=== PATIENT | female | born 1960 | race Caucasian/White ===

== ENCOUNTER → 2018-09-29 08:41 | Outpatient (CLI) | payer OTHER, SELFPAY ==
[2018-09-29 09:12] LABS: Absolute Lymphocyte Count 1.74 X10^3/ul (0.83-4.51); Absolute Neutrophil Count 2.2 X10^3/uL (2.0-7.7); Basophil# 0.02 X10^3/uL; Basophil% 0.5 % (0-1); Eosinophil# 0.16 X10^3/uL; Eosinophils% 3.7 % (0-5); Hematocrit 43.7 % (37-47); Hemoglobin 14.3 g/dl (12.0-15.0); Lymphocyte # 1.74 X10^3/ul (4.0); Lymphocyte % 39.8 % (19-41); Mean Corp Hgb Conc 32.7 g/gl (32-36); Mean Corpuscular Hgb 30.8 pg (27.0-32.0); Mean Platelet Vol. 9.6 fl (6.2-12.0); Monocyte# 0.23 X10^3/uL; Monocyte% 5.3 % (0-10); Neutrophil # 2.22 X10^3/uL (2.7-7.7); Neutrophil % 50.7 % (47-70); Platelet Count 201 K/mm3 (150-450); RBC Distribution Width CV 12.6 % (11.6-14.6); RBC Distribution Width SD 42.8 fl (35.1-43.9); Red Blood Count 4.65 M/mm3 (4.2-5.4); White Blood Count 4.4 K/mm3 (4.4-11.0)
[2018-09-29 09:15] LABS: POSITIVE COUNT NO; POSITIVE DIFFERENTIAL NO; POSITIVE MORPHOLOGY NO
[2018-09-29 09:37] LABS: ALB/GLOB Ratio 1.3 RATIO (0.9-2.4); AST(SGOT) 27 U/L (15-37); Alanine Aminotransfer ALT/SGPT 41 U/L (13-56); Albumin, Serum 3.9 g/dL (3.2-5.0); Alkaline Phosphatase 53 U/L (45-117); Anion Gap 6 (5-15); BUN 20 mg/dL (7-18); Calcium,Total 9.1 mg/dL (8.5-10.1); Chloride 106 mmol/L (98-107); Cholesterol 222 mg/dL (200); EST Glomerular Filtration Rate 78 mL/min (>60); Est Glom Filt Rate - Afr Amer 95 mL/min (>60); Globulin 3.1 g/dL (2.2-4.2); Glucose 83 mg/dL (74-106); High Density Lipoprotein 50 mg/dL; Potassium 4.1 mmol/L (3.5-5.1); Sodium Level 141 mmol/L (136-145); Triglycerides 188 mg/dL; Very Low Density Lipoprotein 38 mg/dL (5-40)
== END ==
PROVIDERS: Family Provider Internal Medicine; PCP Internal Medicine; Referring Provider Internal Medicine; Visit Provider Internal Medicine
DX: Z00.00 Encounter for general adult medical examination without abnormal findings (principal); I10 Essential (primary) hypertension
CPT/HCPCS: 36415; 80053; 80061; 85025

== ENCOUNTER → 2019-03-31 09:56 | Outpatient (CLI) | payer OTHER, SELFPAY ==
[2018-11-01 08:07] VITALS: BMI 27.3
--- NOTE | 2019-03-31 10:00 | BI_ITS ---
MAMMOGRAPHY - BILATERAL SCREENING 3-D TOMOSYNTHESIS REASON FOR EXAM: Female, 58 years old. Bilateral Screening 3-D tomosynthesis PERTINENT HISTORY: Family history of paternal great aunt. TECHNIQUE: 2-D mammograms and 3-D Tomosynthesis of the breast (s) were performed. CAD was performed. COMPARISON: March 23, 2018. FINDINGS: The breast composition is composed of scattered fibroglandular density. Scattered benign calcifications are seen. No dense spiculated masses or suspicious microcalcifications are identified. No architectural distortion is identified. There is no skin thickening or retraction. There has been no significant change since the prior study. BI/SCREENING MAMM (CAD), BILAT IMPRESSION: No mammographic signs of malignancy. Routine yearly mammograms recommended. ASSESSMENT CATEGORY: BIRADS Category 1: Negative. A letter regarding these results will be sent to the patient by the facility within 30 days. FOLLOW UP RECOMMENDATION: Yearly follow up mammogram recommended. (A) Approximately 10% of breast cancers are not detected by mammography. A normal mammogram should not delay biopsy of a clinically suspicious abnormality. Electronically Signed: Jeyson Pink MD at 11:56 EDT , Service support ,
== END ==
PROVIDERS: Family Provider Internal Medicine; PCP Internal Medicine; Referring Provider Obstetrics & Gynecology; Visit Provider Obstetrics & Gynecology
DX: Z12.31 Encounter for screening mammogram for malignant neoplasm of breast (principal)
CPT/HCPCS: 77063; 77067

== ENCOUNTER 2019-08-20 15:14 | Emergency (ER) | payer OTHER, SELFPAY ==
[2019-04-04 08:52] VITALS: BMI 27.3
[2019-08-20 15:14] VITALS: BP 150/111; PULSE 96; RESP 18; O2SAT 100
[2019-08-20 15:15] VITALS: BP 150/111; PULSE 96; RESP 18; TEMP 35.7; O2SAT 100; BMI 27.3
--- NOTE | 2019-08-20 15:26 | US_ITS ---
STUDY: ABDOMINAL ULTRASOUND - RIGHT UPPER QUADRANT REASON FOR VISIT: Female, 59 years old abdominal pain. Known to have a right renal mass. TECHNIQUE: Ultrasound evaluation of the right upper quadrant was performed with real-time and static padilla-scale imaging. TECHNICAL QUALITY: Adequate. COMPARISON: None. FINDINGS: Liver: The liver measures 16.8 cm. There is a heterogeneous echogenicity of the liver. The bile ducts are within normal limits. There is hepatic color flow. The direction of portal flow is hepatopetal. Multiple cysts of the left liver lobe measuring 2 cm and a 1.7 x 1.5 x 1.4 cm. Somewhat ill-defined solid mixed density lesion of the posterior right liver measuring 3.7 x 4.3 x 4.1 cm. This lesion has a slightly hyperechoic rim with an isoechoic center. Gallbladder: Normal distended gallbladder. The gallbladder wall measures 3 mm. There is a negative sonographic Simental's sign. There is no pericholecystic fluid. There are no gallstones. Common Bile Duct (C.B.D.): The common bile duct measures 3 mm. Pancreas: Normal size of the head, body and tail of the pancreas. There is normal echogenicity of the pancreas. There is no demonstrated pancreatic mass or cyst. Right Kidney: Normal size of the right kidney. The right kidney measures 15.7 x 6.9 x 8.8 cm. Normal renal cortex. The right cortex measures 2 cm. Hyperechoic mass density of the right kidney measuring 10.7 x 9.0 x 9.0 cm in the central to lower lobe area. 0.9 x 1.7 x 1.5 cm upper pole cyst or dilated calyx. There is no right hydronephrosis. US/Gallbladder IMPRESSION: Normal gallbladder. Nondistended common bile duct and a normal pancreas. Hyperechoic solid 10.7 x 9.0 x 9.0 cm mass of the right kidney. Heterogeneous liver with cysts of the left lobe and a solid target-like lesion of the right liver suspicious for metastatic disease. Electronically Signed: Felicita Chester MD at 17:34 EDT , Service support ,
--- NOTE | 2019-08-20 15:27 | ED.DCSUM_ITS ---
History of Present Illness Chief Complaint: Abd Pain Informant: Patient Onset: Weeks Timing: Waxes and wanes Current Severity: Moderate Maximum Severity: Moderate Narrative: Patient presents with epigastric abdominal pain. 6 days ago she had severe upper abdominal pain after eating dinner. She states she was up pacing in her home most of the night. She had nausea. She is able to take a leftover Percocet was finally able to get some sleep. Throughout the rest of the week she did not feel well, but did not have any severe attacks of pain. She ate brunch today which consisted of scrambled eggs, hash [place], and parekh. Shortly after that she got severe recurrent pain in the upper abdomen. She has felt nauseated but no vomiting. She has not noted a fever. She does have a history of reflux disease and takes omeprazole. She states she had a similar attack several years ago and her primary care physician increased her omeprazole and gave her Carafate. Her gallbladder was not evaluated at that time. Past Medical History - Allergies and Home Meds Allergies/Adverse Reactions: Allergies clarithromycin [From Biaxin] Allergy (Severe, Verified 11/01/18 08:08) Hives erythromycin base Allergy (Severe, Verified 11/01/18 08:08) other heart racing meperidine [From Demerol] Allergy (Severe, Verified 11/01/18 08:08) [facility] Primary Care Physician: Krystal Jules MD [Primary Care Provider] - Prior records reviewed: Yes Past Medical History: - - Reviewed Smoking Status: Never smoker Review of Systems General: Denies: Chills, Fever Eyes: Denies: Visual changes - bilaterally ENT: Denies: Bilateral ear pain Cardiovascular: Denies: Chest pain Respiratory: Denies: Dyspnea, Cough Gastrointestinal: Reports: Abdominal pain, Nausea. Denies: Vomiting, Diarrhea Genitourinary: Denies: Dysuria Musculoskeletal: Denies: Back pain Skin: Denies: Rash Neurological: Denies: Headache Endocrine: Denies: Polyuria, Polydipsia Hematologic: Denies: Easy bruising Allergy: Denies: Uticaria Physical Exam Vital Signs/Narrative: Vital Signs Temp Pulse Resp BP Pulse Ox 08/20/19 15:15 96.2 F L 96 18 150/111 H 100 08/20/19 15:14 96 18 150/111 H 100 Inital Vital Signs reviewed: Yes General: Well nourished, Well developed Head: Normocephalic ENT: Moist mucous membranes Neck: Supple Cardiovascular: Regular rate, Regular rhythm Respiratory: No distress, CTA bilaterally Abdomen: Soft, Tender - Tenderness across the upper abdomen, worse in the epigastric region. No guarding or rebound. Hypoactive bowel sounds are present., Hypoactive bowel sounds. Negative for: Guarding, Rebound tenderness Extremities: Nontender, No edema Skin: Normal color, No rash Neurological: Alert, Oriented x3 Psychological: Normal affect Diagnostic/Tx/Re-eval Impressions Gallbladder Ultrasound 08/20/19 15:26 IMPRESSION: Normal gallbladder. Nondistended common bile duct and a normal pancreas. Hyperechoic solid 10.7 x 9.0 x 9.0 cm mass of the right kidney. Heterogeneous liver with cysts of the left lobe and a solid target-like lesion of the right liver suspicious for metastatic disease. Electronically Signed: Felicita Chester MD at 17:34 EDT , Service support , 08/20/19 15:26 US Gallbladder [Gallbladder] [US] Stat Laboratory Results 08/20/19 08/20/19 15:32 15:32 WBC 7.3 RBC 4.87 Hgb 14.9 Hct 44.2 MCV 90.8 MCH 30.6 MCHC 33.7 RDW Std Deviation 39.8 RDW Coeff of Vipin 12.0 Plt Count 233 MPV 9.5 Immature Gran % (Auto) 0.100 Neut % (Auto) 52.3 Lymph % (Auto) 28.0 [place] % (Auto) 6.8 Eos % (Auto) 12.4 H Baso % (Auto) 0.4 Absolute Neuts (auto) 3.8 Absolute Lymphs (auto) 2.05 Nucleated RBC % 0 Sodium 143 Potassium 3.8 Chloride 108 H Carbon Dioxide 24.0 Anion Gap 11 BUN 19 H Creatinine 0.90 Estim Creat Clear Calc 58.12 Est GFR (MDRD) Af Amer 82 Est GFR (MDRD) Non-Af 68 BUN/Creatinine Ratio 21.1 H Glucose 103 Calcium 9.4 Total Bilirubin 0.40 Direct Bilirubin 0.11 AST 16 ALT 27 Alkaline Phosphatase 66 Total Protein 7.1 Albumin 4.1 Globulin 3.0 Lipase 169 - Medical Decision Making Patient was given morphine and Zofran for pain and nausea. Symptoms are improved on repeat evaluation. Test results are discussed with her. I discussed with her specifically the mass noted on her right kidney and in her liver. She states these have been present for several years and she has followed up in the past with a specialist at [facility]. She has been advised that they are not cancerous. She has an appointment with her PCP on August 31. I recommended she have her primary doctor compare the reports from today's scan to her most recent records from [facility] to ensure they have not changed in size. She voices understanding and agreement. ED Disposition - Plan for ED Patient: Disposition: Home or Assisted Living Diagnosis: Epigastric pain Instructions: EPIGASTRIC PAIN (Uncertain cause) Referrals: Krystal Jules MD [Primary Care Provider] - Keep Evaristo appointment
[2019-08-20] MEDS: Ondansetron 4 MG/2 ML Vial IV (15:37)
[2019-08-20] MEDS: Morphine 4 MG/ML Syringe IV (15:37)
[2019-08-20] MEDS: 0.9% Normal Saline 1,000 ML 150 ML IV (15:40)
[2019-08-20 15:47] LABS: Absolute Lymphocyte Count 2.05 X10^3/uL (0.83-4.51); Absolute Neutrophil Count 3.8 X10^3/uL (2.0-7.7); Basophil# 0.03 X10^3/uL; Basophil% 0.4 % (0-1); Eosinophil# 0.91 X10^3/uL; Eosinophils% 12.4 % (0-5); Hematocrit 44.2 % (37-47); Hemoglobin 14.9 g/dL (12.0-15.0); Lymphocyte # 2.05 X10^3/ul (4.0); Mean Corp Hgb Conc 33.7 g/dL (32-36); Mean Corpuscular Hgb 30.6 pg (27.0-32.0); Mean Corpuscular Volume 90.8 fL (81-99); Mean Platelet Vol. 9.5 fl (6.2-12.0); Monocyte% 6.8 % (0-10); NRBC Flagged by Analyzer 0 % (0-5); Neutrophil # 3.81 X10^3/uL (2.7-7.7); Neutrophil % 52.3 % (47-70); Platelet Count 233 K/mm3 (150-450); RBC Distribution Width SD 39.8 fl (35.1-43.9); Red Blood Count 4.87 M/mm3 (4.2-5.4); White Blood Count 7.3 K/mm3 (4.4-11.0)
[2019-08-20 16:01] LABS: AST(SGOT) 16 U/L (15-37); Alanine Aminotransfer ALT/SGPT 27 U/L (13-56); Albumin, Serum 4.1 g/dL (3.2-5.0); Alkaline Phosphatase 66 U/L (45-117); Anion Gap 11 (5-15); BUN 19 mg/dL (7-18); BUN/Creat Ratio 21.1 RATIO (10-20); Bilirubin, Direct 0.11 mg/dL (0.00-0.30); Calcium,Total 9.4 mg/dL (8.5-10.1); Chloride 108 mmol/L (98-107); EST Glomerular Filtration Rate 68 mL/min (>60); Est Glom Filt Rate - Afr Amer 82 mL/min (>60); Estimated Creatinine Clearance 58.12 ml/min; Glucose 103 mg/dL (74-106); Lipase 169 U/L (73-393); Potassium 3.8 mmol/L (3.5-5.1); Protein, Total 7.1 g/dL (6.4-8.2); Sodium Level 143 mmol/L (136-145)
[2019-08-20 17:04] VITALS: BP 146/61; PULSE 87; RESP 18; O2SAT 97
[2019-08-20 18:24] VITALS: BP 162/80; PULSE 73; RESP 16; O2SAT 97
== END 2019-08-20 18:25 | disposition home or self-care (01) ==
PROVIDERS: Emergency Provider Emergency Medicine; Family Provider Internal Medicine; PCP Internal Medicine
DX: R10.13 Epigastric pain (principal); K21.9 Gastro-esophageal reflux disease without esophagitis; R11.0 Nausea; Z79.899 Other long term (current) drug therapy; Z88.1 Allergy status to other antibiotic agents; Z88.5 Allergy status to narcotic agent
CPT/HCPCS: 76705; 80048; 80076; 83690; 85025; 96361; 96374; 96375; 99283; J7030; A4216; J2405

== ENCOUNTER → 2019-10-13 09:23 | Outpatient (CLI) | payer OTHER, SELFPAY ==
[2019-08-31 16:54] VITALS: BMI 27.3
--- NOTE | 2019-10-13 09:32 | MRI_ITS ---
HISTORY: Attention right kidney. No right kidney mass for many years. Concern for growth and changes. Comparison study is an ultrasound from August 20, 2019. No previous cross-sectional imaging of either CT or MRI is available of the right kidney. Comparison with the patient's folder demonstrates only previous abdominal ultrasound as discussed, breast imaging, and a pelvic ultrasound. 20 series. 1240 images. 14 mL of Dotarem intravenous gadolinium. Findings: Several lesions are present within the liver. These lesions are hyperintense on T2 weighted series, hyperintense on T2 fat saturated series, hypointense on T1 pre-gadolinium series. They are not as intense as the fluid within the gallbladder or the stomach lumen on T2 weighted series. On the coronal T1 post gadolinium limited images. Only the largest liver lesion, the lesion within the left hepatic lobe enhances. It is a slightly heterogeneous enhancement with hypo-intense areas at its periphery. On this MRI of the kidneys, it is not completely imaged on any of the axial series. I measure it at at least 3.3 x 5.2 x 3.7 cm. The lesion within the right kidney remains. This lesion is hyperintense on T2, hyperintense on T1, hypointense on T2 fat saturation, and hypointense on T1 post gadolinium with fat saturation. On that T1 post gadolinium with fat saturation, there are enhancing vessels permeating throughout the mass. I measure the mass on today's study at 8.7 x 8.5 x 10 cm. I do not perceive any hemorrhage within the mass. The mass does abut and displace it and has caused atrophy to the remaining right renal parenchyma. The remaining right renal parenchyma does enhance. There is evidence to suggest that the right kidney does generate contrast excretion through normal renal function. There is a superior pole calyx which is abnormally dilated likely due to at least partial obstruction of the calyx by the mass. The spleen, pancreas, and adrenal glands are normal. The stomach is mostly decompressed. The gallbladder remains. No biliary ductal dilatation is perceived. Within the lower thoracic and lumbar spine bony alignment is normal. Vertebral body height is normal. Bowel gas pattern is normal. 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 No evidence of hemorrhage. Several lesions within the liver. Most of these lesions demonstrate imaging characteristics similar to that of cysts. The largest lesion, anteriorly within the left hepatic lobe measures 3.3 x 5.2 x 3.7 cm. This could be a hemangioma, however, as this study was performed for the kidney, there is not complete imaging on any axial series through the liver lesion. The other lesions within the liver are cysts and were proven to be cysts on the ultrasound. at 0159 Reported and signed by: Boy Barros MD Electronically Signed: Boy Barros MD at 1:58 EST Tel , Service support ,
== END ==
PROVIDERS: Family Provider Internal Medicine; PCP Internal Medicine; Referring Provider Internal Medicine; Visit Provider Internal Medicine
DX: N28.89 Other specified disorders of kidney and ureter (principal)
CPT/HCPCS: 74183; A9575

== ENCOUNTER → 2019-10-25 08:59 | Outpatient (CLI) | payer OTHER, SELFPAY ==
[2019-08-31 16:54] VITALS: BMI 27.3
[2019-10-25 09:57] LABS: Cholesterol 229 mg/dL (200); High Density Lipoprotein 59 mg/dL; Triglycerides 123 mg/dL; Very Low Density Lipoprotein 25 mg/dL (5-40)
== END ==
PROVIDERS: Family Provider Internal Medicine; PCP Internal Medicine; Referring Provider Nurse Practitioner Family; Visit Provider Nurse Practitioner Family
DX: E78.5 Hyperlipidemia, unspecified (principal)
CPT/HCPCS: 36415; 80061

== ENCOUNTER → 2020-04-02 10:37 | Outpatient (CLI) | payer OTHER, SELFPAY ==
[2019-10-25 09:50] VITALS: BMI 27.3
--- NOTE | 2020-04-02 10:40 | BI_ITS ---
MAMMOGRAPHY - BILATERAL SCREENING REASON FOR EXAM: Female, 59 years old. Routine annual screening examination. PERTINENT HISTORY: Great aunt with breast cancer. TECHNIQUE: Digital bilateral breast williams (3D mammographic acquisition) in the CC and MLO projections. 2-D mediolateral oblique (MLO) and craniocaudad (CC) views of both breasts were obtained. CAD: Full Field Digital Mammography with Computer Added Detection was performed. COMPARISON: Comparison is made with prior examination dated March 31, 2019. FINDINGS: Breast Composition: There are scattered areas of fibroglandular density. There are no dominant masses or suspicious calcifications. Stable benign-appearing bilateral axillary lymph nodes. No other significant abnormalities are identified. There has been no significant change since the prior study. BI/SCREEN MAMM (CAD) W/WILLIAMS BILAT IMPRESSION: Stable bilateral screening mammogram. Yearly follow-up mammogram recommended. (A) ASSESSMENT CATEGORY: BIRADS Category 2: Benign. A letter regarding these results will be sent to the patient by the facility within 30 days. Approximately 10% of breast cancers are not detected by mammography. A normal mammogram should not delay biopsy of a clinically suspicious abnormality. [id number] Electronically Signed: Pro Mosquera, at 12:14 EDT , Service support ,
== END ==
PROVIDERS: PCP Internal Medicine; Referring Provider Obstetrics & Gynecology; Visit Provider Obstetrics & Gynecology
DX: Z12.31 Encounter for screening mammogram for malignant neoplasm of breast (principal)
CPT/HCPCS: 77063; 77067

== ENCOUNTER 2020-05-10 05:55 | Day surgery (SDC) | payer OTHER, SELFPAY ==
[2019-10-25 09:50] VITALS: BMI 27.3
--- NOTE | 2020-05-10 | COLBX_PTH ---
PATIENT: JUANPABLO MENARD LOC: EN U#:[id number] AGE/SX: 60/F ROOM: RE05/10/[address]: Dr. Adelso Eubanks MD : 1960 BED: DIS: 05/10/2020 SPEC #: [id number] RECD: 05/10/20 12:36 STATUS: DOROTHY CABELLO #: [id number] GUSTAVO: 05/10/20 00:[address]: Adelso Eubanks DEPT: SURGICAL PATHOLOGY RECD BY: Zafar Chandler ENTERED: 05/13/20 09:42 SP TYPE: COLON BX OT DR: Dr. Krystal Jules MD Tissues: A - Cecum, NOS B - Ascending colon Procedures: Surgery Specimen Level IV HEADER OPERATION: Colonoscopy - open access (MAC) PRE-OP DIAGNOSIS: Screening TISSUE SUBMITTED: A - Cecum polyp (cold snare), B - Proximal ascending polyp biopsy MICROSCOPIC DIAGNOSIS A. Cecum polyp, biopsy: Fragments of tubular adenoma. B. Proximal ascending colon polyp, biopsy: Fragments of tubular adenoma. SJ:esther 05/14/20 MICROSCOPIC DESCRIPTION Slides are reviewed. GROSS DESCRIPTION A - Received in fixative is one container labeled with the patient's name and designated cecal polyp biopsy. The specimen consists of multiple irregular fragments of light masters soft tissue that in aggregate measure 0.8 x 0.5 x 0.1 cm. The specimen is totally submitted in one cassette. B - Received in fixative is one container labeled with the patient's name and designated proximal ascending polyp. The specimen consists of two irregular fragments of light masters soft tissue that in aggregate measure 1 x 0.6 x 0.1 cm. The specimen is totally submitted in one cassette. / AM:esther 05/13/20 TC:1 CPT: 07551 x2
[2020-05-10 06:17] VITALS: BP 162/68; PULSE 63; RESP 16; TEMP 36.5; O2SAT 99; BMI 28.1
--- NOTE | 2020-05-10 06:20 | PCM.HP.STD ---
Problem List (1) Screening for intestinal cancer Status: Acute History of Present Illness Date of Admission: 05/10/20 The patient is a 60 year old F who presents for screening colonoscopy today. Her previous colonoscopy was 10 years prior. She denies bright red blood per rectum or melena. No abdominal pain. She otherwise states that she is in good health. Past Medical History Past Medical History (Chronic Problems): Chronic Problems (Last Reviewed 10/25/19 @ 09:41 by Janet Aguila) Renal mass (Chronic) Hypertension (Chronic) Hyperlipidemia (Chronic) Seasonal allergies (Chronic) Hiatal hernia (Chronic) GERD (gastroesophageal reflux disease) (Chronic) Medical History: Medical History (Last Reviewed 10/25/19 @ 09:41 by Janet Aguila) Seasonal allergies (Chronic) J30.2 Hiatal hernia (Chronic) K44.9 GERD (gastroesophageal reflux disease) (Chronic) K21.9 Allergies clarithromycin [From Biaxin] Allergy (Severe, Verified 05/08/20 10:02) Hives erythromycin base Allergy (Severe, Verified 05/08/20 10:02) other heart racing meperidine [From Demerol] Allergy (Severe, Verified 05/08/20 10:02) hives Home Medications: Ambulatory Orders Medication Instructions Recorded omeprazole 20 mg capsule,delayed See Rx Instructions .ROUTE 01/03/20 release .COMPLEX #90 cap estradiol 0.025 mg/24 hr 1 patch TRANSDERMAL 2XW #24 ea 01/08/20 semiweekly transdermal patch Surgical History: Surgical History (Last Reviewed 10/25/19 @ 09:41 by Janet Aguila) History of D&C Z98.890 History of LAVH Z90.710 bladder sling History of carpal tunnel release Z98.890 2017, also removal of a non benign tumor. History of section Z98.891 x3, 1980, 1982, 1986 History of ear surgery Z98.890 1973 History of eye surgery Z98.890 shorten the muscle 74, 84 History of hemorrhoidectomy Z98.890 2011 History of tonsillectomy Z90.89 1965 History of vascular surgery Z98.890 Rt leg 2019 Smoking Status: Never smoker Tobacco Use: Non-smoker Review of Systems Constitutional: Denies: Weight Change HEENT: Denies: Difficulty Swallowing Cardiovascular: Denies: Chest Pain Respiratory: Denies: Cough Gastrointestinal: Denies: Abdominal Pain Endocrine: Denies: Change in Body Habitus VTE Information - Inpt Only VTE Present on Admission: No Patient Problems: Active and Suspected Problems (Last Reviewed 10/25/19 @ 09:41 by Janet Aguila) Screening for intestinal cancer (Acute) - Physical Exam Vitals/I&O's: Body Mass Index (BMI) 27.3 General: Alert, Oriented x3, Cooperative, No apparent distress Oral: Moist Mucosa Lungs: Clear to auscultation, Normal air movement Cardiovascular: Regular rate, Regular Rhythm Abdomen: Bowel Sounds Present, Soft, Non Tender Extremities: No Calf Tenderness Neurological: - - Normal cognition Psych/Mental Status: Normal Affect Laboratory Results 05/09/20 09:50: COVID-19 (ROJELIO) Not Detected Assessment/Plan All Active Problems (Last Reviewed 10/25/19 @ 09:41 by Janet Aguila) Screening for intestinal cancer (Acute) Climacteric (Acute) The patient presents via open access today. Plan to proceed with a screening colonoscopy with possible biopsy or polypectomy is indicated. She is aware of the technique, benefit, risks, alternatives. She has had an opportunity to ask and have questions answered. We will proceed as noted. Adelso Eubanks M.D., F.A.C.S. Procedure Criteria Procedure Type: Elective COVID Risk Discussion: The surgeon/proceduralist and patient have discussed in detail the risk of exposure to and/or potential harm posed by the COVID-19 virus with having a surgery/procedure at this time versus the risk of delaying the surgery/procedure. It is not possible to know either the risk of delaying the surgery or procedure or chance of getting an infection with perfect accuracy, but a joint decision was made between the patient and the surgeon/proceduralist to proceed at this time with the scheduled surgery/procedure as indicated on the consent form.
[2020-05-10] MEDS: Lactated Ringers 1,000 ML 100 ML IV (06:28)
[2020-05-10 07:34] VITALS: BP 116/49; BP 162/68; PULSE 71; RESP 14; TEMP 36.3; O2SAT 100
--- NOTE | 2020-05-10 07:35 | OP.COLON_ITS ---
Patient Name: Felicity Shah Procedure Date: 05/10/2020 7:01 AM Date of : 1960 Age: 60 Procedure: Colonoscopy Indications: Screening for colorectal malignant neoplasm Providers: Adelso Eubanks MD Medicines: See the Anesthesia note for documentation of the administered medications Patient Profile: Last Colonoscopy: 10 years ago. Complications: No immediate complications. Procedure: Pre-Anesthesia Assessment: - Prior to the procedure, a History and Physical was performed, and patient medications and allergies were reviewed. The patient's tolerance of previous anesthesia was also reviewed. The risks and benefits of the procedure and the sedation options and risks were discussed with the patient. All questions were answered, and informed consent was obtained. Prior Anticoagulants: The patient has taken no previous anticoagulant or antiplatelet agents. ASA Grade Assessment: II - A patient with mild systemic disease. After reviewing the risks and benefits, the patient was deemed in satisfactory condition to undergo the procedure. After I obtained informed consent, the scope was passed under direct vision. Throughout the procedure, the patient's blood pressure, pulse, and oxygen saturations were monitored continuously. The pediatric colonoscope was introduced through the anus and advanced to the cecum, identified by appendiceal orifice and ileocecal valve. The colonoscopy was unusually difficult due to a tortuous colon. Successful completion of the procedure was aided by applying abdominal pressure. The patient tolerated the procedure well. The quality of the bowel preparation was good. The ileocecal valve was photographed. Scope In: 7:07:29 AM Scope Withdrawal Time 0 hours 10 minutes 47 seconds Scope Out: 7:29:29 AM Total Procedure Duration Time 0 hours 22 minutes 0 seconds Findings: The digital rectal exam findings include non-thrombosed external hemorrhoids, non-thrombosed internal hemorrhoids and internal hemorrhoids that prolapse with straining, but spontaneously regress to the resting position (Grade II). Pertinent negatives include lax anal tone. A 10 mm polyp was found in the cecum. The polyp was sessile. The polyp was removed with a cold snare. Resection and retrieval were complete. A 5 mm polyp was found in the proximal ascending colon. The polyp was sessile. The polyp was removed with a cold biopsy forceps. Resection and retrieval were complete. The colon (entire examined portion) was significantly tortuous. Impression: - Non-thrombosed external hemorrhoids, non-thrombosed internal hemorrhoids and internal hemorrhoids that prolapse with straining, but spontaneously regress to the resting position (Grade II) found on digital rectal exam. - One 10 mm polyp in the cecum, removed with a cold snare. Resected and retrieved. - One 5 mm polyp in the proximal ascending colon, removed with a cold biopsy forceps. Resected and retrieved. - Tortuous colon. Recommendation: - Discharge patient to home. - Resume previous diet. - Continue present medications. - Repeat colonoscopy in 5 years for surveillance based on pathology results. - Telephone my office for pathology results in 1 week. Procedure Code(s): --- Professional --- 82983, Colonoscopy, flexible; with removal of tumor(s), polyp(s), or other lesion(s) by snare technique 39082, 59, Colonoscopy, flexible; with biopsy, single or multiple Diagnosis Code(s): --- Professional --- Z12.11, Encounter for screening for malignant neoplasm of colon K64.1, Second degree hemorrhoids K64.4, Residual hemorrhoidal skin tags D12.0, Benign neoplasm of cecum D12.2, Benign neoplasm of ascending colon Q43.8, Other specified congenital malformations of intestine CPT copyright 2017 [employer]. All rights reserved. The codes documented in this report are preliminary and upon sports centre manager review may be revised to meet current compliance requirements. Adelso Eubanks MD 05/10/2020 7:35:09 AM This report has been signed electronically. Number of Addenda: 0 Note Initiated On: 05/10/2020 7:01 AM
--- NOTE | 2020-05-10 07:35 | OP.CCLET_ITS ---
05/10/2020 Krystal Jules MD [address] [place] [address] [place] [address] Re : Colonoscopy procedure for Felicity Shah Dear Dr. Jules This procedure was performed on Sunday, May 10, 2020. My impressions and recommendations are as follows: Impressions : - Non-thrombosed external hemorrhoids, non-thrombosed internal hemorrhoids and internal hemorrhoids that prolapse with straining, but spontaneously regress to the resting position (Grade II) found on digital rectal exam. - One 10 mm polyp in the cecum, removed with a cold snare. Resected and retrieved. - One 5 mm polyp in the proximal ascending colon, removed with a cold biopsy forceps. Resected and retrieved. - Tortuous colon. Recommendations : - Discharge patient to home. - Resume previous diet. - Continue present medications. - Repeat colonoscopy in 5 years for surveillance based on pathology results. - Telephone my office for pathology results in 1 week. My findings are described in the full procedure note, which is enclosed. If I can be of further assistance, please feel free to contact me at Doctor phone number(s): Work: . Sincerely, Adelso Eubanks MD 05/10/2020 7:35:09 AM This report has been signed electronically.
[2020-05-10 07:40] VITALS: BP 116/59; BP 162/68; PULSE 71; RESP 16; O2SAT 98
[2020-05-10 07:45] VITALS: BP 116/62; BP 162/68; PULSE 69; RESP 16; O2SAT 100
[2020-05-10 07:50] VITALS: BP 160/73; BP 162/68; PULSE 73; RESP 16; TEMP 36.3; O2SAT 100
[2020-05-10 08:06] VITALS: BP 162/68
== END 2020-05-10 08:34 | disposition home or self-care (01) ==
LOC: EN 05:56 → AC 05:56
PROVIDERS: Anesthesiology; PCP Internal Medicine; Referring Provider Internal Medicine; Visit Provider Surgery
PROC: 0DJD8ZZ Inspection of Lower Intestinal Tract, Via Natural or Artificial Opening Endoscopic (ICD-10-PCS; CPT 45378; principal; 2020-05-10 06:55)
DX: Z12.11 Encounter for screening for malignant neoplasm of colon (principal); D12.0 Benign neoplasm of cecum; D12.2 Benign neoplasm of ascending colon; Z11.59 Encounter for screening for other viral diseases; Q43.8 Other specified congenital malformations of intestine; K64.4 Residual hemorrhoidal skin tags; K64.1 Second degree hemorrhoids; K21.9 Gastro-esophageal reflux disease without esophagitis; I10 Essential (primary) hypertension; E78.5 Hyperlipidemia, unspecified; K44.9 Diaphragmatic hernia without obstruction or gangrene; Z79.899 Other long term (current) drug therapy; Z88.5 Allergy status to narcotic agent; Z88.1 Allergy status to other antibiotic agents
CPT/HCPCS: 45380; 45385; 87635; 88305; G2023; J7120; J2405; U0003

== ENCOUNTER → 2020-08-23 10:30 | Outpatient (CLI) | payer OTHER, SELFPAY | PROVIDERS: PCP Internal Medicine; Referring Provider Obstetrics & Gynecology; Visit Provider Obstetrics & Gynecology | DX: R30.0 Dysuria (principal) | CPT/HCPCS: 87086 ==

== ENCOUNTER → 2020-09-06 10:35 | Outpatient (CLI) | payer OTHER, SELFPAY ==
[2020-09-06 09:58] VITALS: BMI 28.1
[2020-09-06 12:49] LABS: Absolute Lymphocyte Count 1.35 X10^3/uL (0.83-4.51); Absolute Neutrophil Count 3.2 X10^3/uL (2.0-7.7); Basophil# 0.01 X10^3/uL; Basophil% 0.2 % (0-1); Eosinophil# 0.12 X10^3/uL; Eosinophils% 2.4 % (0-5); Hematocrit 44.1 % (37-47); Hemoglobin 14.3 g/dL (12.0-15.0); Lymphocyte # 1.35 X10^3/ul (4.0); Lymphocyte % 26.7 % (19-41); Mean Corp Hgb Conc 32.4 g/dL (32-36); Mean Corpuscular Hgb 30.4 pg (27.0-32.0); Mean Corpuscular Volume 93.8 fL (81-99); Mean Platelet Vol. 9.6 fl (6.2-12.0); Monocyte# 0.38 X10^3/uL; Monocyte% 7.5 % (0-10); NRBC Flagged by Analyzer 0 % (0-5); Neutrophil # 3.18 X10^3/uL (2.7-7.7); Platelet Count 230 K/mm3 (150-450); RBC Distribution Width CV 12.7 % (11.6-14.6); RBC Distribution Width SD 43.6 fl (35.1-43.9); White Blood Count 5.1 K/mm3 (4.4-11.0)
[2020-09-06 13:25] LABS: ALB/GLOB Ratio 1.1 RATIO (0.9-2.4); AST(SGOT) 30 U/L (15-37); Alanine Aminotransfer ALT/SGPT 47 U/L (13-56); Albumin, Serum 3.9 g/dL (3.2-5.0); Alkaline Phosphatase 61 U/L (45-117); Anion Gap 5 (5-15); BUN 19 mg/dL (7-18); BUN/Creat Ratio 24.1 RATIO (10-20); Calcium,Total 9.1 mg/dL (8.5-10.1); Chloride 105 mmol/L (98-107); Cholesterol 218 mg/dL (200); Creatinine, Serum 0.79 mg/dL (0.55-1.02); EST Glomerular Filtration Rate 79 mL/min (>60); Est Glom Filt Rate - Afr Amer 96 mL/min (>60); Globulin 3.5 g/dL (2.2-4.2); Glucose 89 mg/dL (74-106); High Density Lipoprotein 51 mg/dL; Potassium 4.3 mmol/L (3.5-5.1); Protein, Total 7.4 g/dL (6.4-8.2); Sodium Level 139 mmol/L (136-145); Triglycerides 172 mg/dL; Very Low Density Lipoprotein 34 mg/dL (5-40)
== END ==
PROVIDERS: PCP Internal Medicine; Referring Provider Internal Medicine; Visit Provider Internal Medicine
DX: I10 Essential (primary) hypertension (principal); E78.5 Hyperlipidemia, unspecified
CPT/HCPCS: 36415; 80053; 80061; 85025

== ENCOUNTER → 2020-10-22 06:39 | Outpatient (CLI) | payer OTHER, SELFPAY ==
[2020-09-12 11:09] VITALS: BMI 27.8
[2020-10-21 10:55] VITALS: BMI 28.1
--- NOTE | 2020-10-22 06:40 | MRI_ITS ---
STUDY: MRI ABDOMEN WITH AND WITHOUT CONTRAST REASON FOR EXAM: Female, 60 years old. f/u right renal mass, no new symptoms TECHNIQUE: Standardized fat and water weighted pulse sequences were obtained in all 3 orthogonal planes post contrast administration. IV Dotarem 15ml was administered for the contrast portion of the examination. COMPARISON: None. FINDINGS: Stable T2 cystic structures within the left lobe of the liver. Otherwise, the liver is unremarkable. Normal gallbladder and extrahepatic biliary system. Normal spleen. Normal pancreas. Normal bilateral adrenal glands. Stable lobulated fat-containing mass in the right kidney measuring 8.3 x 8.8 x 10 cm. Compatible with a renal AML. No evidence of intracerebral hemorrhage. Otherwise, remainder of the right renal parenchyma is within normal limits. Normal left kidney. Remaining visualized upper abdominal organs are within normal limits. 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 No evidence of internal hemorrhage. Electronically Signed: Riccardo Barahona DO at 7:28 EST Tel , Service support ,
[2020-10-22 08:25] LABS: CREATININE FINGERSTICK 0.7 mg/dL (0.55-1.02); EGFR FINGERSTICK > 60.0000 mL/min (>60)
== END ==
PROVIDERS: PCP Internal Medicine; Referring Provider Internal Medicine; Visit Provider Internal Medicine
DX: D30.01 Benign neoplasm of right kidney (principal); N28.89 Other specified disorders of kidney and ureter
CPT/HCPCS: 74183; A9575

== ENCOUNTER → 2021-03-27 16:45 | Outpatient (CLI) | payer OTHER, SELFPAY ==
[2020-10-21 10:55] VITALS: BMI 28.1
--- NOTE | 2021-03-27 16:47 | RAD_ITS ---
STUDY: X-RAY - LEFT HAND REASON FOR EXAM: Female, 60 years old. left hand pain TECHNIQUE: 3 view(s) of the hand. COMPARISON: None. FINDINGS: Normal radiocarpal articulation. Normal distal radioulnar joint. Normal visualized carpal bones. Normal carpal articulations Normal carpometacarpal articulation of the thumb. Normal second through fifth carpometacarpal joints. Normal metacarpi. Normal metacarpophalangeal joint of the thumb. Normal interphalangeal joint of the thumb. Normal proximal and distal phalanges of the thumb. Normal metacarpophalangeal joints of the second through fifth fingers. Normal proximal and distal interphalangeal joints of the second through fifth fingers. Normal phalanges of the second through fifth fingers. No visualized acute fracture. The soft tissue structures are unremarkable. RAD/Hand Min 3 Views IMPRESSION: Normal x-ray examination of the hand. Electronically Signed: Luis Fraire MD at 18:04 EDT , Service support ,
--- NOTE | 2021-03-27 16:47 | RAD_ITS ---
STUDY: X-RAY - LEFT WRIST REASON FOR EXAM: Female, 60 years old. left wrist pain TECHNIQUE: 4 view(s) of the wrist were obtained. COMPARISON: None. FINDINGS: Normal visualized distal radius and ulna. Normal radiocarpal articulation. Normal distal radioulnar articulation. Normal carpal bones. Normal carpal articulations. Normal carpometacarpal articulation of the thumb. Normal second through fifth carpometacarpal articulations. Normal visualized metacarpal bones. The soft tissue structures are unremarkable. There is no demonstrated acute fracture. RAD/Wrist min 3 Views IMPRESSION: Normal x-ray examination of the wrist. Electronically Signed: Luis Fraire MD at 18:02 EDT , Service support ,
== END ==
PROVIDERS: PCP Internal Medicine; Referring Provider Physician Assistant; Visit Provider Physician Assistant
DX: M25.532 Pain in left wrist (principal); M79.642 Pain in left hand
CPT/HCPCS: 73110; 73130

== ENCOUNTER → 2021-03-31 10:43 | Outpatient (CLI) | payer OTHER, SELFPAY ==
[2021-03-31 10:25] VITALS: BMI 28.1
[2021-03-31 12:19] LABS: Absolute Lymphocyte Count 1.52 X10^3/uL (0.83-4.51); Absolute Neutrophil Count 1.9 X10^3/uL (2.0-7.7); Basophil# 0.02 X10^3/uL; Basophil% 0.5 % (0-1); Eosinophil# 0.12 X10^3/uL; Eosinophils% 3.1 % (0-5); Hematocrit 44.3 % (37-47); Hemoglobin 14.4 g/dL (12.0-15.0); Lymphocyte # 1.52 X10^3/ul (0.83-4.51); Lymphocyte % 39.3 % (19-41); Mean Corp Hgb Conc 32.5 g/dL (32-36); Mean Corpuscular Volume 92.3 fL (81-99); Mean Platelet Vol. 9.8 fl (6.2-12.0); Monocyte# 0.31 X10^3/uL; NRBC Flagged by Analyzer 0 % (0-5); Neutrophil # 1.89 X10^3/uL (2.7-7.7); Neutrophil % 48.8 % (47-70); Platelet Count 233 K/mm3 (150-450); RBC Distribution Width CV 12.3 % (11.6-14.6); RBC Distribution Width SD 42.4 fl (35.1-43.9); White Blood Count 3.9 K/mm3 (4.4-11.0)
[2021-03-31 12:39] LABS: ALB/GLOB Ratio 1.2 RATIO (0.9-2.4); AST(SGOT) 19 U/L (15-37); Alanine Aminotransfer ALT/SGPT 34 U/L (13-56); Albumin, Serum 3.9 g/dL (3.2-5.0); Alkaline Phosphatase 61 U/L (45-117); Anion Gap 6 (5-15); BUN 22 mg/dL (7-18); BUN/Creat Ratio 29.2 RATIO (10-20); Calcium,Total 9.1 mg/dL (8.5-10.1); Chloride 103 mmol/L (98-107); Cholesterol 232 mg/dL (200); Creatinine, Serum 0.75 mg/dL (0.55-1.02); EST Glomerular Filtration Rate 83 mL/min (>60); Est Glom Filt Rate - Afr Amer 100 mL/min (>60); Globulin 3.2 g/dL (2.2-4.2); Glucose 88 mg/dL (74-106); High Density Lipoprotein 58 mg/dL; Potassium 4.1 mmol/L (3.5-5.1); Protein, Total 7.1 g/dL (6.4-8.2); Sodium Level 138 mmol/L (136-145); Triglycerides 125 mg/dL; Very Low Density Lipoprotein 25 mg/dL (5-40)
== END ==
PROVIDERS: PCP Internal Medicine; Visit Provider Internal Medicine
DX: I10 Essential (primary) hypertension (principal); E78.5 Hyperlipidemia, unspecified
CPT/HCPCS: 36415; 80053; 80061; 85025

== ENCOUNTER → 2021-04-02 07:52 | Outpatient (CLI) | payer OTHER, SELFPAY ==
[2020-10-21 10:55] VITALS: BMI 28.1
[2021-03-31 10:25] VITALS: BMI 28.1
--- NOTE | 2021-04-02 07:57 | BI_ITS ---
MAMMOGRAPHY - BILATERAL SCREENING REASON FOR EXAM: Female, 60 years old. Routine annual screening examination. PERTINENT HISTORY: Aunt with breast cancer. TECHNIQUE: Digital bilateral breast williams (3D mammographic acquisition) in the CC and MLO projections. 2-D mediolateral oblique (MLO) and craniocaudad (CC) views of both breasts were obtained. CAD: Full Field Digital Mammography with Computer Added Detection was performed. COMPARISON: Comparison is made with prior study dated 04/02/2020 and 03/31/2019. FINDINGS: Breast Composition: There are scattered areas of fibroglandular density. There are no dominant masses or suspicious calcifications. No other significant abnormalities are identified. There has been no significant change since the prior study. BI/SCRN MAMM (CAD)W/WILLIAMS BILAT IMPRESSION: Stable bilateral screening mammogram. Yearly follow-up mammogram recommended. (A) ASSESSMENT CATEGORY: BIRADS Category 1: Negative. A letter regarding these results will be sent to the patient by the facility within 30 days. Approximately 10% of breast cancers are not detected by mammography. A normal mammogram should not delay biopsy of a clinically suspicious abnormality. [id number] Electronically Signed: Pro Mosquera MD at 9:21 EDT , Service support ,
== END ==
PROVIDERS: PCP Internal Medicine; Referring Provider Nurse Practitioner Women's Health; Visit Provider Nurse Practitioner Women's Health
DX: Z12.31 Encounter for screening mammogram for malignant neoplasm of breast (principal); Z80.3 Family history of malignant neoplasm of breast
CPT/HCPCS: 77063; 77067

== ENCOUNTER 2023-09-18 20:17 | Emergency (ER) | payer OTHER, SELFPAY ==
[2023-09-18 20:18] VITALS: BP 151/84; PULSE 83; RESP 15; TEMP 36.2; O2SAT 100; BMI 27.9
--- NOTE | 2023-09-18 20:36 | EDS_ITS ---
HPI HPI - Female History of Present Illness Chief Complaint: Complaint Detail of Chief Complaint: Dysuria with urinary frequency. UTI history in the past. Informant: patient Associated Symptoms Associated Symptoms: Positive for Dysuria, Frequency and Urgency Narrative Narrative: 63 old female send frequent UTIs in the last several months after having renal surgery in [place]. Today started having urinary frequency and dysuria again. Mildly cloudy urine. Denies fever. Denies vomiting. Prior similar symptoms: Yes Recent Illness/Hospitalization: No PFSH PFSH Medical History De Quervain's tenosynovitis, left GERD (gastroesophageal reflux disease) Hiatal hernia Seasonal allergies Home Medications amlodipine 5 mg tablet 5 mg PO DAILY #90 tabs 02/04/21 [Rx Last Taken Unknown] prednisone 10 mg tablet 10 mg PO DAILY #30 tabs 03/27/21 [Rx Last Taken Unknown] celecoxib 200 mg capsule (Celebrex) 200 mg PO DAILY #30 caps 04/04/21 [Rx Last Taken Unknown] estradiol 0.025 mg/24 hr semiweekly transdermal patch 1 patch transdermal 2XW #24 ea 04/08/21 [Rx Last Taken Unknown] omeprazole 20 mg capsule,delayed release See Rx Instructions .Route .COMPLEX #90 caps 04/19/22 [Rx Last Taken Unknown] ciprofloxacin HCl 500 mg tablet (Cipro) 500 mg PO BID 10 days #20 tabs 09/18/23 [Rx Last Taken Unknown] Allergy/AdvReac Type Severity Reaction Status Date / Time clarithromycin [From Biaxin] Allergy Severe Hives Verified 09/18/23 20:22 erythromycin base Allergy Severe other Verified 09/18/23 20:22 meperidine [From Demerol] Allergy Severe hives Verified 09/18/23 20:22 azithromycin [From Zithromax] Allergy hives Verified 09/18/23 20:22 Family History Father Diabetes Hypertension Hyperlipemia CVA (cerebral vascular accident) Mother Hyperlipemia Hypertension Grandfather Cancer kidney Surgical History History of carpal tunnel release History of section History of D&C History of ear surgery History of eye surgery History of hemorrhoidectomy History of LAV History of tonsillectomy History of vascular surgery Normal colonoscopy Social History Smoking Status: Never smoker alcohol intake: never substance use type: does not use caffeine: Yes what type of physical activity do you participate in: walking and bicycling seatbelt use: always do you feel safe at home: Yes additional social history: [facility] ROS ROS ED ROS Narrative Urinary frequency. Dysuria. Review of Systems ROS Unobtainable: Denies due to encephalopathy Constitutional Constitutional ED: Denies chills or fever(s) Eyes Eyes: Denies blurry vision ENT ENT ED: Denies ear pain Cardiovascular Cardiovascular: Denies chest pain or palpitations Respiratory/Chest Respiratory/Chest: Denies cough or dyspnea Gastrointestinal Gastrointestinal: Reports nausea; Denies abdominal pain, constipation, diarrhea, melena or vomiting Genitourinary Genitourinary ED: Reports dysuria and urinary frequency; Denies hematuria Musculoskeletal Musculoskeletal: Denies arthralgias, myalgias or neck pain Integumentary Denies abscess Neurologic Neurologic: Denies headache(s) Psychiatric Psychiatric: Denies anxiety Endocrine Endocrinology: Denies heat intolerance Hematologic/Lymphatic Hematologic/Lymphatic: Denies easy bleeding, easy bruising or lymphadenopathy Allergic/Immunologic Allergic/Immunologic ED: Denies mouth swelling, tongue swelling or urticaria EXAM Physical Exam Narrative Exam Narrative: 63-year-old female no acute distress. Vital signs stable afebrile. She does not look septic or toxic. H EENT exam unremarkable. Neck nontender no lymphadenopathy. Lungs clear to auscultation bilaterally. Heart regular rhythm no murmur rate about 80. Abdomen soft nontender, nondistended normal bowel sounds no peritoneal signs. Moving all 4 extremities. Calves are nontender without edema or cords. Neurologically she is awake alert. No focal motor deficits. Back nontender. Const Vital Signs: 09/18/23 20:18 Temperature 97.2 F L Temperature Source Temporal Pulse Rate 83 Respiratory Rate 15 Blood Pressure 151/84 H Blood Pressure Mean 106 Pulse Ox 100 Oxygen Delivery Method Room Air Positive well nourished and well developed; Negative for cachectic or contractures General Appearance ED: well developed and NAD; Negative for cachectic, contractures, odor of alcohol detected or pallor Nutritional Appearance: Negative for cachectic HEENT Reports moist mucous membranes Negative for trauma or tenderness Eyes PERRL and EOMs intact bilaterally General Eye ED: Negative for pale conjunctiva or scleral icterus Neck no lymphadenopathy, supple and no JVD General: Negative for other Thyroid: Negative for tender Chest Wall inspection of chest normal and palpation of chest normal Chest: Negative for other Resp normal respiratory effort and clear to auscultation bilaterally Effort and Inspection: Negative for pain with movement Auscultation: Negative for rales, rhonchi, wheezes or diminished lung sounds Cardio regular rate, regular rhythm, S1 normal heart sound, no murmurs and no JVD Rate: Negative for bradycardia or tachycardic Rhythm: Negative for abnormal rhythm GI normal to inspection, nondistended, normoactive bowel sounds, soft to palpation, non-tender, non-distended and no masses Auscultation: normoactive bowel sounds Palpation: Negative for tender, guarding or rigid Back/Spine no CVA tenderness General Back: Negative for CVA tenderness Cervical Spine: Negative for cervical spine tenderness Thoracic Spine / Upper Back: Negative for thoracic spinal tenderness Lumbar Spine / Lower Back: Negative for lumbar spinal tenderness Extremity normal to inspection and full ROM General Extremety ED: Negative for edema or tenderness General Extremity: Negative for edema Neuro oriented x3 and CN's II-XII intact bilaterally Sensorium / Orientation: alert, oriented to person, oriented to place and oriented to time; Negative for confused, lethargic or stuporous Motor Exam: strength 5/5 throughout Psych mental status grossly normal Attitude: No agitated Speech: No other Mood & Affect: Negative for depressed, anxious or tearful Skin no rashes or lesions noted and no wounds General Skin Exam: Negative for jaundice or pallor Rashes: No rashes noted Trauma: Negative for other MDM MDM MDM Narrative Medical decision making narrative: 63-year-old female with urinary frequency and dysuria. Urinalysis being sent. I do not think she needs any blood work. Clinically looks well. Repeat exam patient doing well at 9:36 PM. We discussed her urinalysis results. She will be started on the antibiotic Cipro, 1 twice daily for 7 days. First dose given in the ER. History & Record Review Discussion w/independent historian: Patient Additional record(s) reviewed:: Prior inpatient record, Prior outpatient record, Prior ED visit and Prior labs Lab Data Lab results narrative: Urinalysis shows no nitrates. We will try 5-10 red cells. 50-100 white cells. 1+ bacteria. This will be treated as UTI. Urine culture will be sent due to her number of recurrent infections. Labs: Laboratory Results - last 24 hr 09/18/23 20:30 Urine Color Yellow Urine Clarity Sl. Cloudy Urine pH 6.5 Ur Specific [place] 1.010 Urine Protein 30 H Urine Glucose (UA) Normal Urine Ketones Negative Urine Occult Blood 250 H Urine Nitrite Negative Urine Bilirubin Negative Urine Urobilinogen Normal Ur Leukocyte Esterase 500 H Urine RBC 5-10 SEEN Urine WBC 50-100 SEEN Ur Squamous Epith Cells 0-5 SEEN Urine Bacteria 1+ Urine Mucus 0 SEEN Discharge Plan Triage Chief Complaint: Complaint ED Provider: Damian Martin Dx/Rx/DC Orders Clinical Impression: UTI (urinary tract infection) Instructions: Urinary Tract Infections in Women Prescriptions: New ciprofloxacin HCl [Cipro] 500 mg tablet 500 mg PO BID 10 Days Qty: 20 0RF No Action estradiol 0.025 mg/24 hr patch semiweekly 1 patch transdermal 2XW Qty: 24 5RF Rx Instructions: apply 1 patch for 3 days alternating with 1 patch for 4 days each week prednisone 10 mg tablet 10 mg PO DAILY Qty: 30 0RF Rx Instructions: 4 tablets 3 times daily, then 3 tablets 3 times daily, then 2 tablets 3 times daily, then 1 tablet 3 times daily celecoxib [Celebrex] 200 mg capsule 200 mg PO DAILY Qty: 30 0RF Rx Instructions: Do not take in conjunction with other NSAIDs. Tylenol is okay. amlodipine 5 mg tablet 5 mg PO DAILY Qty: 90 3RF omeprazole 20 mg capsule,delayed release(DR/EC) See Rx Instructions .ROUTE .COMPLEX Qty: 90 4RF Dose Instruction: TAKE 1 CAPSULE DAILY Rx Instructions: TAKE 1 CAPSULE DAILY Primary Care Provider: EVGENY MCKEON Referrals: EVGENY MCKEON [Other] Activity Restrictions/Additional Instructions: Follow-up with your doctor to ensure you are improving. Return if you are feeling worse. A urine culture was sent to ensure that the antibiotic that was used, Cipro, is appropriate for the bacterial infection and grows out. The antibiotics Cipro 1 pill twice a day for the next 10 days. Disposition Disposition: Home, Self Care
[2023-09-18 20:40] LABS: Mucous, Urine 0 SEEN /hpf (<or=2+)
[2023-09-18 20:56] LABS: Color, Urine Yellow (Yellow); Glucose, Dipstick Normal (Normal); Ketone-Dipstick Negative (Negative); Leukocyte Esterase-Dipstick 500 /ul (Negative); Nitrite-Dipstick Negative (Negative); Occult Blood-Urine 250 /ul (Negative); Protein-Dipstick 30 mg/dl (Negative); Urine Bilirubin Dipstick Negative (Negative); Urine Clarity Sl. Cloudy (Clear); Urine Urobilinogen Normal (Normal); Urine pH 6.5 (5.0 - 8.0)
[2023-09-18 21:21] VITALS: BP 140/77; PULSE 77; RESP 16; TEMP 36.8; O2SAT 99
[2023-09-18 21:23] LABS: Bacteria 1+ /hpf (None Seen); Squamous Epithelial Cells - UA 0-5 SEEN /hpf (5-10)
[2023-09-18 21:24] LABS: Red Blood Cells-Urine 5-10 SEEN /hpf (0-5); White Blood Cells 50-100 SEEN /hpf (0-5)
[2023-09-18] MEDS: Ciprofloxacin 500 MG Tablet PO (21:51)
[2023-09-18 22:00] VITALS: BP 141/70; PULSE 77; RESP 16; TEMP 36.6; O2SAT 99
== END 2023-09-18 22:10 | disposition home or self-care (01) ==
PROVIDERS: Emergency Provider Emergency Medicine; Visit Provider Emergency Medicine
DX: N39.0 Urinary tract infection, site not specified (principal); K21.9 Gastro-esophageal reflux disease without esophagitis; Z79.52 Long term (current) use of systemic steroids; Z79.899 Other long term (current) drug therapy; Z87.440 Personal history of urinary (tract) infections
CPT/HCPCS: 81001; 87077; 87086; 87088; 87186; 99282